=== PATIENT | male | born 1975 | race Caucasian/White ===

== ENCOUNTER 2016-06-26 19:23 | Emergency (ER) | payer OTHER ==
[~2016-06-26] VITALS: Ht 177.8 cm; Wt 122.7 kg
[~2016-06-26 19:23] MED LIST: HYDR-3533 PO; PROT40TA PO
[2016-06-26 19:32] VITALS: BP 141/84; PULSE 62; RESP 20; TEMP 98.1; O2SAT 97
== END 2016-06-26 19:55 | disposition left against medical advice (07) ==
LOC: PHED 19:23
DX: R10.9 Unspecified abdominal pain (principal)
CPT/HCPCS: 99281

== ENCOUNTER 2017-10-28 08:28 | Emergency (ER) | payer OTHER ==
[~2017-10-28] VITALS: Ht 177.8 cm; Wt 124.9 kg
[2017-10-28 08:29] VITALS: BP 137/60; PULSE 60; RESP 16; TEMP 98.5; O2SAT 97
--- NOTE | 2017-10-28 10:09 | PD ---
HPI Chief Complaint: Injury Time Seen by Provider: 09:10 Travel History International Travel<30 days: No Contact w/Intl Traveler<30days: No Traveled to known affect area: No History of Present Illness HPI This is a 42-year-old male here with right ankle pain 2 days. He reports he twisted the ankle on uneven sidewalk. He has constant aching pain with weightbearing and range of motion. Symptoms are slightly relieved with rest and elevation. Symptom severity is moderate. PFSH Past Medical History Medical History: Denies Significant Hx Hx Anticoagulant Therapy: No Diabetes: No Tetanus Vaccination: Unknown Influenza Vaccination: No Social History Alcohol Use: Yes (FEW DRINKS PER WEEK) Tobacco Use: Yes (WEEKENDS) Substance Use: No Allergies-Medications (Allergen,Severity, Reaction): Coded Allergies: No Known Allergies (Verified Adverse Reaction, Unknown, 10/28/17) Reported Meds & Prescriptions Reported Meds & Active Scripts Active No Active Prescriptions or Reported Medications Review of Systems Except as stated in HPI: all other systems reviewed are Neg General / Constitutional: No: Fever Eyes: No: Visual changes HENT: No: Headaches Cardiovascular: No: Chest Pain or Discomfort Respiratory: No: Shortness of Breath Gastrointestinal: No: Abdominal Pain Genitourinary: No: Dysuria Physical Exam Narrative GENERAL: Alert and well-appearing 42-year-old male SKIN: Warm and dry. HEAD: Normocephalic. Atraumatic EYES: No scleral icterus. No injection or drainage. NECK: Supple, trachea midline. No cervical midline tenderness CARDIOVASCULAR: Regular rate and rhythm without murmurs, gallops, or rubs. RESPIRATORY: Breath sounds equal bilaterally. No accessory muscle use. MUSCULOSKELETAL: No cyanosis. RLE: Mild swelling to the ankle. Tenderness to the lateral and medial malleolus. No obvious deformity. Palpable DP pulse. Normal sensation. Brisk cap refill. Data Data Last Documented VS Vital Signs Date Time Temp Pulse Resp B/P (MAP) Pulse Ox O2 Delivery O2 Flow Rate FiO2 10/28/17 08:29 98.5 60 16 137/60 (85) 97 Orders Orders Ankle, Complete ([id number]) (10/28/17 ) [facility] Medical Decision Making Medical Screen Exam Complete: Yes Emergency Medical Condition: Yes Differential Diagnosis Sprain versus fracture versus dislocation Narrative Course 42-year-old male with right ankle pain. The extremity is neurovascularly intact. X-ray negative for fracture. Patient will be treated for ankle sprain. Armin wrap applied by overhead crane technician. Diagnosis Primary Impression: Ankle sprain Qualified Codes: S93.401A - Sprain of unspecified ligament of right ankle, initial encounter Referrals: Primary Care Physician Additional Instructions: Armin wrap as directed. Ice and elevate the extremity. Ibuprofen 800 mg every 6 hours as needed for pain Scripts No Active Prescriptions or Reported Meds Disposition: 01 DISCHARGE HOME Condition: Stable Kika Shafer Oct 28, 2017 10:09
--- NOTE | 2017-10-28 10:14 | RADRPT ---
EXAM DATE: 10/28/2017 10:04 AM EDT AGE/SEX: 42 years / Male INDICATIONS: Right lateral ankle pain with swelling. CLINICAL DATA: This is the patient's initial encounter. Patient reports that signs and symptoms have been present for 1 day and indicates a pain score of 7/10. MEDICAL/SURGICAL HISTORY: . . COMPARISON: No prior [facility] exams available for comparison. FINDINGS: 3 views of the right ankle demonstrate no fracture or dislocation. The ankle mortise is intact. Anthropological Linguist alization is within normal limits and there is no significant arthropathy. No soft tissue abnormality or radiopaque foreign body is identified. There are calcifications within the soft tissue of the dis graciela anterior leg. CONCLUSION: No acute right ankle abnormality is identified. Electronically signed by: Desmond Huitron MD 10/28/2017 10:13 AM EDT
== END 2017-10-28 10:46 | disposition home or self-care (01) ==
LOC: PHED 08:28
DX: S93.401A Sprain of unspecified ligament of right ankle, initial encounter (principal); X50.1XXA Overexertion from prolonged static or awkward postures, initial encounter; Y92.480 Sidewalk as the place of occurrence of the external cause; Z72.0 Tobacco use
CPT/HCPCS: 73610; 99283